=== PATIENT | male | born 1995 | race Caucasian/White ===

== ENCOUNTER 2019-12-19 20:32 | Emergency (ER) | payer OTHER, SELFPAY ==
[2019-12-19] MEDS ORDERED: HYDROCODONE/APAP 10/325 TAB ONE (21:14)
--- NOTE | 2019-12-19 21:42 | RAD REPORT ---
EXAM DESCRIPTION: RAD - Hand Right 3 View - 12/19/2019 9:37 pm CLINICAL HISTORY: PAIN COMPARISON: <Comparisons> FINDINGS: Mildly angulated fracture is seen of the fifth metacarpal neck with adjacent soft tissue s welling.
--- NOTE | 2019-12-19 22:08 | ER ---
Nurse's Notes [facility] Name: Steven Rodriguez Age: 23 yrs Sex: Male : 1995 Arrival Date: 12/19/2019 Time: 20:33 Bed 7 Private MD: Diagnosis: Other fracture of fifth metacarpal bone, right hand-mildly angulated fracture of fifth metacarpal neck Presentation: 12/18 20:38 Chief complaint: Patient states: Punched board 1 hour [employer]. Right hand pain since with ll1 swelling. Coronavirus screen: Proceed with normal triage. Patient denies a cough. Patient denies shortness of breath or difficulty breathing. Patient denies measured and/or subjective temperature greater than 100.4F prior to today's visit. Patient denies travel on a cruise ship or to a country the [facility] currently lists as an affected area. Patient denies contact with known and/or suspected case of COVID-19. Ebola Screen: Patient denies travel to an Ebola-affected area in the 21 days before illness onset. Initial Sepsis Screen: Does the patient meet any 2 criteria? No. Patient's initial sepsis screen is negative. Risk Assessment: Do you want to hurt yourself or someone else? Patient reports no desire to harm self or others. Onset of symptoms was December 19, 2019. 20:38 Method Of Arrival: Ambulatory ll1 20:38 Acuity: BRYCE 4 ll1 21:04 Initial Sepsis Screen: Does the patient have a suspected source of infection? No. jd3 Patient's initial sepsis screen is negative. Triage Assessment: 21:01 General: Appears in no apparent distress. uncomfortable, Behavior is calm, cooperative, jd3 appropriate for age. Injury Description: pt reporting hitting right hand against a cabinet. Historical: - Allergies: 20:39 Latex, Natural Rubber; ll1 20:39 PENICILLINS; ll1 - PSHx: 20:39 leg surg for staph; ll1 - Immunization history:: Flu vaccine is not up to date. - Social history:: Smoking status: Patient reports use of chewing tobacco. Patient/guardian denies using tobacco, Stopped _ months ago 12 Patient uses alcohol, only on a social basis. Patient/guardian denies using IV drugs. Screenin:01 Abuse screen: Denies threats or abuse. Nutritional screening: No deficits noted. jd3 Tuberculosis screening: No symptoms or risk factors identified. Fall Risk Ambulatory Aid- None/Bed Rest/Nurse Assist (0 pts). Gait- Normal/Bed Rest/Wheelchair (0 pts) Mental Status- Oriented to own ability (0 pts). Total Swain Fall Scale indicates No Risk (0-24 pts). Assessment: 20:59 General: Appears in no apparent distress. uncomfortable, Behavior is calm, cooperative, jd3 appropriate for age. Pain: Complains of pain in dorsum of right hand Quality of pain is described as aching, tender, Aggravated by repositioning. Neuro: Level of Consciousness is awake, alert, obeys commands, Oriented to person, place, time, situation. Cardiovascular: Capillary refill < 3 seconds Patient's skin is warm and dry. Respiratory: Airway is patent Respiratory effort is even, unlabored, Respiratory pattern is regular, symmetrical. GI: No signs and/or symptoms were reported involving the gastrointestinal system. : No signs and/or symptoms were reported regarding the genitourinary system. EENT: No signs and/or symptoms were reported regarding the EENT system. Derm: Skin is intact, Skin is dry, Skin is normal, Skin temperature is warm. Musculoskeletal: Circulation, motion, and sensation intact. Range of motion: limited in right hand. 21:46 Reassessment: Patient appears in no apparent distress at this time. Patient and/or jd3 family updated on plan of care and expected duration. Pain level reassessed. Patient is alert, oriented x 3, equal unlabored respirations, skin warm/dry/pink. awaiting for X-ray results. 22:22 Reassessment: Patient appears in no apparent distress at this time. Patient and/or jd3 family updated on plan of care and expected duration. Pain level reassessed. Patient is alert, oriented x 3, equal unlabored respirations, skin warm/dry/pink. Patient states feeling better. Vital Signs: 20:38 BP 142 / 80; Pulse 74; Resp 17; Temp 98.2; Pulse Ox 100% ; Pain 4/10; ll1 22:22 BP 132 / 77; Pulse 76; Resp 16 S; Pulse Ox 100% on R/A; jd3 ED Course: 20:33 Patient arrived in ED. cl3 20:39 Triage completed. ll1 20:40 Arm band placed on. ll1 20:42 Marinas, Garcia, VIDEO JOURNALIST is PHCP. pm1 20:42 Gino Garcia MD is Attending Physician. pm1 20:55 Alan Chen, RN is Primary Nurse. jd3 21:04 Patient has correct armband on for positive identification. Bed in low position. Call jd3 light in reach. Side rails up X 1. 21:38 Hand Right 3 View XRAY In Process Unspecified. EDMS 22:21 Orthoglass splint: Ulnar gutter/Boxer splint applied on unna boot applied on right leg. oe 22:22 No provider procedures requiring assistance completed. Patient did not have IV access jd3 during this emergency room visit. Administered Medications: 21:09 Drug: [place] 10 mg-325 mg 1 tabs Route: PO; jd3 22:00 Follow up: Response: No adverse reaction; RASS: Alert and Calm (0) jd3 Outcome: 22:07 Discharge ordered by MD. pm1 22:23 Discharged to home ambulatory, with family. jd3 22:23 Condition: stable 22:23 Discharge instructions given to patient, family, Instructed on discharge instructions, follow up and referral plans. medication usage, Demonstrated understanding of instructions, follow-up care, medications, Prescriptions given X 1. 22:23 Patient left the ED. jd3 Signatures: Dispatcher [employer] EDKS Garcia Nation, [place] VIDEO JOURNALIST pm1 Graham Esparza oe Alan Chen, RN RN Karla Penn cl3 Adams Pittman RN RN ll1
--- NOTE | 2019-12-19 22:08 | EDPHYS ---
Physician Documentation [facility] Name: Steven Rodriguez Age: 23 yrs Sex: Male : 1995 Arrival Date: 12/19/2019 Time: 20:33 Bed 7 Private MD: ED Physician Gino Garcia HPI: 12/18 20:59 This 23 yrs old Male presents to ER via Ambulatory with complaints of Hand pm1 Injury. 20:59 The patient or guardian reports pain, swelling. The complaints affect the right hand. pm1 Context: The problem was sustained at home, resulted from punched cabinet out of anger. Onset: The symptoms/episode began/occurred today. Modifying factors: The symptoms are alleviated by holding still, the symptoms are aggravated by movement. Associated signs and symptoms: Pertinent negatives: cyanosis distally, decreased sensation distally, numbness distally, tingling distally. Severity of symptoms: in the emergency department the symptoms are unchanged. The patient has experienced a previous episode, boxer fracture to 4th and 5th right metacarpal 3 years ago. Historical: - Allergies: 20:39 Latex, Natural Rubber; ll1 20:39 PENICILLINS; ll1 - PSHx: 20:39 leg surg for staph; ll1 - Immunization history:: Flu vaccine is not up to date. - Social history:: Smoking status: Patient reports use of chewing tobacco. Patient/guardian denies using tobacco, Stopped _ months ago 12 Patient uses alcohol, only on a social basis. Patient/guardian denies using IV drugs. ROS: 20:59 Constitutional: Negative for fever, chills, and weight loss, Cardiovascular: Negative pm1 for chest pain, palpitations, and edema, Respiratory: Negative for shortness of breath, cough, wheezing, and pleuritic chest pain, Abdomen/GI: Negative for abdominal pain, nausea, vomiting, diarrhea, and constipation, Back: Negative for injury and pain. 20:59 Skin: Negative for injury, rash, and discoloration, Neuro: Negative for headache, weakness, numbness, tingling, and seizure. 20:59 MS/extremity: Positive for pain, swelling, tenderness, of the medial aspect of right hand. Exam: 20:59 Constitutional: This is a well developed, well nourished patient who is awake, alert, pm1 and in no acute distress. Head/Face: Normocephalic, atraumatic. 20:59 Skin: Warm, dry with normal turgor. Normal color with no rashes, no lesions, and no evidence of cellulitis. 20:59 Cardiovascular: Exam negative for acute changes, Rate: normal, Rhythm: regular, Pulses: no pulse deficits are appreciated. 20:59 Respiratory: Exam negative for acute changes, respiratory distress, shortness of breath. 20:59 Musculoskeletal/extremity: Extremities: grossly normal except: noted in the distal aspect of fifth metacarpal: swelling, tenderness, There is no evidence of laceration, puncture. 20:59 Neuro: Exam negative for acute changes, Orientation: is normal, Mentation: is normal, Sensation: is normal, no obvious gross deficits. 21:59 Musculoskeletal/extremity: Right hand: All finger pointing in the same direction and no pm1 scissoring. Patient able to make a full fist. Vital Signs: 20:38 BP 142 / 80; Pulse 74; Resp 17; Temp 98.2; Pulse Ox 100% ; Pain 4/10; ll1 22:22 BP 132 / 77; Pulse 76; Resp 16 S; Pulse Ox 100% on R/A; jd3 MDM: 20:51 Patient medically screened. pm1 21:59 Data reviewed: vital signs. Data interpreted: Pulse oximetry: on room air is 100 %. pm1 Interpretation: normal. Counseling: I had a detailed discussion with the patient and/or guardian regarding: the historical points, exam findings, and any diagnostic results supporting the discharge/admit diagnosis, radiology results, the need for outpatient follow up, for definitive care, a hand specialist, a orthopedic surgeon, to return to the emergency department if symptoms worsen or persist or if there are any questions or concerns that arise at home. 12/19 02:01 ED course: [employer] aware reviewed. pm1 12/18 20:57 Order name: Hand Right 3 View XRAY; Complete Time: 21:50 pm1 12/18 20:59 Order name: Ice pack; Complete Time: 21:05 pm1 12/18 21:50 Order name: Ulnar Gutter splint; Complete Time: 22:16 pm1 Administered Medications: 12/18 21:09 Drug: [place] 10 mg-325 mg 1 tabs Route: PO; jd3 22:00 Follow up: Response: No adverse reaction; RASS: Alert and Calm (0) jd3 Disposition: 23:53 Co-signature as Attending Physician, Gino Garcia MD. rn Disposition: 12/19/19 22:07 Discharged to Home. Impression: Other fracture of fifth metacarpal bone, right hand - mildly angulated fracture of fifth metacarpal neck. - Condition is Stable. - Discharge Instructions: Boxer's Fracture. - Prescriptions for Tylenol- Codeine #3 300-30 mg Oral Tablet - take 2 tablets by ORAL route every 6 hours As needed; 20 tablet. - Medication Reconciliation Form, Thank You Letter, Antibiotic Education, Prescription Opioid Use form. - Work release form (12/20/19 11:06). em1 - Follow up: Emergency Department; When: As needed; Reason: Worsening of condition. Follow up: Private Physician; When: 2 - 3 days; Reason: Recheck today's complaints, Continuance of care, Re-evaluation by your physician. - Problem is new. - Symptoms have improved. Signatures: Dispatcher [employer] EDMS Gino Garcia MD MD rn Marinas, Patrick, SUPPLY CATALOGUER SUPPLY CATALOGUER pm1 Alan Chen RN RN jd3 Adams Pittman RN RN [email or web address] Heladio Torres em1 Corrections: (The following items were deleted from the chart) 22:21 22:11 Sling ordered. pm1 jd3 22:23 22:07 12/19/2019 22:07 Discharged to Home. Impression: Other fracture of fifth jd3 metacarpal bone, right hand - mildly angulated fracture of fifth metacarpal neck. Condition is Stable. Forms are Medication Reconciliation Form, Thank You Letter, Antibiotic Education, Prescription Opioid Use. Follow up: Emergency Department; When: As needed; Reason: Worsening of condition. Follow up: Private Physician; When: 2 - 3 days; Reason: Recheck today's complaints, Continuance of care, Re-evaluation by your physician. Problem is new. Symptoms have improved. pm1
[2019-12-19 22:29] VITALS: TEMP 98.2; O2SAT 100
[2019-12-19 22:30] VITALS: BP 132/77
== END 2019-12-19 22:23 | disposition home or self-care (01) ==
LOC: ER 20:32
PROC: 2W3CX1Z Immobilization of Right Lower Arm using Splint (ICD-10-PCS; principal; 2019-12-19)
DX: S62.396A Other fracture of fifth metacarpal bone, right hand, initial encounter for closed fracture (principal); W22.8XXA Striking against or struck by other objects, initial encounter; Y93.89 Activity, other specified; Y92.009 Unspecified place in unspecified non-institutional (private) residence as the place of occurrence of the external cause; F17.220 Nicotine dependence, chewing tobacco, uncomplicated; Z88.0 Allergy status to penicillin; Z91.048 Other nonmedicinal substance allergy status; Z91.040 Latex allergy status
CPT/HCPCS: 99284